=== PATIENT | female | born 1990 | race Caucasian/White ===

== ENCOUNTER 2019-12-10 14:34 | Emergency (ER) | payer SELFPAY ==
--- NOTE | 2019-12-10 14:44 | ED_ITS ---
HPI - Abdominal Pain General Stated Complaint: abdo pain nausea and Related Data Allergies Allergy/AdvReac Type Severity Reaction Status Date / Time Sulfa (Sulfonamide Allergy Unknown Verified 11/30/17 12:40 Antibiotics) MDM - Abdominal Pain MDM Narrative Medical decision making narrative: Patient presented to the urgent care stating that her ROOF MECHANIC referred her to the emergency room due to her painful abdominal cramps at 6 weeks . Patient was made aware that this is not the emergency room and we are unable to obtain an ultrasound. Patient states that she did not wish to be treated and will go to the ER as suggested by her doctor, Dr. Velarde at [place]. Patient was in no distress.
== END 2019-12-10 14:49 | disposition left against medical advice (07) ==
PROVIDERS: Emergency Provider Internal Medicine Hematology & Oncology
DX: Z53.21 Procedure and treatment not carried out due to patient leaving prior to being seen by health care provider (principal)
CPT/HCPCS: 99199

== ENCOUNTER 2019-12-10 14:53 | Emergency (ER) | payer OTHER, SELFPAY ==
--- NOTE | ~2019-12-10 | US_ITS ---
EXAMINATION: US OB <=14 wk fetus w TV DATE: 12/10/2019 17:56 INDICATION: Pelvic pain and TECHNIQUE: Real-time transabdominal and transvaginal obstetric ultrasound. FINDINGS: No prior studies for comparison. The uterus measures 7.5 x 5.1 x 5.3 cm. There is a tiny intrauterine gestational sac corresponding to 5 week 1 day gestational age. No pole identified. Right ovary is normal. Left ovary contains a 1.8 cm corpus luteal cyst. IMPRESSION: 1. Intrauterine gestational sac corresponding to 5 week 1 day gestation. No evidence for pole, likely due to early gestational age. Recommend follow-up with serial quantitative beta-hCG levels and ultrasound as clinically warranted. 2: 1.8 cm corpus luteal cyst of the left ovary. Reviewed, dictated and finalized at location A. IMPRESSION: 1. Intrauterine gestational sac corresponding to 5 week 1 day gestation. No delfina dence for pole, likely due to early gestational age. Recommend follow-up with serial quantitative beta-hCG levels and ultrasound as clinically warranted . 2: 1.8 cm corpus luteal cyst of the left ovary.
[2019-12-10 14:56] VITALS: BP 144/68; PULSE 90; RESP 18; TEMP 36.2; O2SAT 100
[2019-12-10 15:10] LABS: Basophils Percent Auto 0.3 % (0.2-1.2); Eosinophils Absolute Auto 0.1 K/mm3 (0-0.3); Eosinophils Percent Auto 1.4 % (0-4.4); Hematocrit 39.9 % (37.0-47.0); Hemoglobin 13.3 g/dL (12.0-15.0); Immature Granulocyte Absolute 0.06 K/mm3 (0.00-0.031); Immature Granulocyte Percent A 0.6 % (0-0.5); Lymphocytes Absolute Auto 2.15 K/mm3 (0.9-3.2); Lymphocytes Percent Auto 21.2 % (18.3-44.2); Mean Corpuscular HGB Conc 33.3 g/dl (32-36); Mean Corpuscular Hemoglobin 28.9 pg (26-34); Mean Corpuscular Volume 86.6 fl (80-100); Mean Platelet Volume 8.8 fl (7.4-10.4); Monocytes Absolute Auto 0.6 K/mm3 (0.1-0.6); Monocytes Percent Auto 5.5 % (2.6-8.5); Neutrophils Absolute Auto 7.2 K/mm3 (1.3-6.7); Platelet Count Result 328 k/mm3 (150-375); Red Blood Count 4.61 M/mm3 (4.2-5.4); Red Cell Distribution Width 13.7 % (11.5-14.5); White Blood Count 10.1 K/mm3 (4.5-10.0)
[2019-12-10 15:22] LABS: Alanine Aminotransferase 191 U/L (4-35); Albumin Level 4.2 g/dL (3.5-5.1); Alkaline Phosphatase 90 U/L (38-126); Anion Gap 14.2 mmol/L (7-16); Aspartate Amino Transferase 300 U/L (14-36); Bilirubin,Total 1.1 mg/dL (0.2-1.3); Blood Urea Nitrogen 8 mg/dL (7-17); Calcium 9.2 mg/dL (8.4-10.2); Carbon Dioxide 24 mmol/L (22-30); Chloride 102 mmol/L (98-107); Estimated CRCL calculation 143 ml/min; Estimated Glomerular Filt Rate > 60; Glucose 155 mg/dL (65-105); Lipase 38 U/L (23-300); Potassium 4.2 mmol/L (3.4-5.0); Sodium 136 mmol/L (137-145)
[2019-12-10 16:16] VITALS: BP 131/75; PULSE 77; RESP 18; O2SAT 97
[2019-12-10 16:36] LABS: Add Urine Microscopic? YES; Amorphous Sediment Urine Few; Appearance Urine Cloudy (Clear); Bacteria Urine Trace /hpf; Bilirubin Urine Negative (Negative); Blood Urine Negative (Negative); Color Urine Amber (Yellow); Glucose Urine UA Negative (Negative); Ketones Urine Trace mg/dL (Negative); Leukocyte Esterase Ur 1+ LEU/UL (Negative); Mucus Urine Few /lpf; Nitrate Urine Negative (Negative); Protein Urine Negative (Negative); Specific Grav Ur 1.021 (1.001-1.035); Squamous Epithelial Cell Urine Many /hpf (Few); WBC Urine 0-3 /hpf
--- NOTE | 2019-12-10 17:10 | PC.NURSE ---
Pt taken to US
--- NOTE | 2019-12-10 17:11 | ED.ABDPAIN ---
HPI - Abdominal Pain General Chief Complaint: Abdominal Pain Stated Complaint: 6 weeks preg, nausea, back and abd pain Time Seen by Provider: 12/10/19 15:57 History of Present Illness HPI narrative: Patient presents with her for upper abdominal pain. Started at 8 AM this morning. She started vomiting at 2:00. She said she has been vomiting nonstop since then. She has had her gallbladder taken out. She has had 2 normal pregnancies with delivery. She has not been sick in the last week or 2. She has had no hyperemesis with the early . She should be 6 weeks along with her last menstrual cycle in the middle of October. She has not yet started her [employer] appointments. She gauges her pain at 8 out of 10. 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 She does not smoke cigarettes, drink alcohol, or do drugs. MD elicited complaint: abdominal pain Pertinent past history: other (Cholecystectomy, ) Onset (ago): hour(s) Pain Consistency: constant Location: epigastric and periumbilical Severity: severe Exacerbating factors: nothing Relieving factors: nothing Related Data Home Medications Medication Instructions Recorded Confirmed No Home Medications 12/10/19 12/10/19 Allergies Allergy/AdvReac Type Severity Reaction Status Date / Time Sulfa (Sulfonamide Allergy Unknown Unknown Verified 12/10/19 14:53 Antibiotics) Review of Systems Review of Systems: Narrative: CONSTITUTIONAL: Denies fever, chills, or sweats. EYES: Denies visual changes, redness, or discharge. ENT: Denies rhinorrhea, congestion, sore throat, or otalgia. CARDIOVASCULAR: Denies chest pain, palpitations, or edema. RESPIRATORY: Denies cough or dyspnea. GASTROINTESTINAL: She has abdominal pain, nausea, and vomiting, but not diarrhea. GENITOURINARY: Denies dysuria or hematuria. SKIN: Denies rash or itching. MUSCULOSKELETAL: Denies back pain, joint pain, or myalgia. NEUROLOGIC: Denies headache, numbness, or weakness. All systems reviewed & are unremarkable except as noted in HPI and below PMFSH Surgical History Surgical History (Updated 12/10/19 @ 17:16 by Lydia Ross MD) History of History of cholecystectomy Social History Social History (Updated 12/10/19 @ 17:17 by Lydia Ross MD) Smoking status: Never smoker Alcohol intake: never Substance use: never Gender identity (if verbalized by the patient): Female Exam Narrative: Exam Narrative: GENERAL: Well-appearing, well-nourished, and in no acute distress. Overweight HEAD: Normocephalic, atraumatic. EYES: PERRLA and EOMI. ENT: Nares clear, no rhinorrhea or epistaxis. Mucous membranes moist. NECK: Supple. CHEST: Clear to auscultation. No respiratory distress. HEART: Regular rate and rhythm. No murmur heard. Normal peripheral pulses. ABDOMEN: Soft, nontender, nondistended, normal active bowel sounds. EXTREMITIES: Normal range of motion. No edema. SKIN: Warm, dry, no rash. NEURO: No focal deficits. Alert and oriented x3. PSYCH: Normal mood and affect. Course Reevaluation(s) Reevaluation #1: Went into check on the patient and her IV fluids had just been started. She had just gotten her Reglan and still has some nausea. I told her that her labs were all good. Awaiting the results of the ultrasound. Date: 12/10/19 Time: 18:36 Reevaluation #2: Went back into check on the patient, and she is feeling better. Her bag of IV fluids is empty. She is asking for some juice and crackers. I told her about her elevated liver functions and told her I would refer her to Dr. Barroso. Date: 12/10/19 Time: 18:55 Vital Signs Vital signs: Vital Signs Temperature 97.1 F L 12/10/19 14:56 Pulse Rate 90 12/10/19 14:56 Respiratory Rate 18 12/10/19 14:56 Blood Pressure 144/68 H 12/10/19 14:56 Pulse Oximetry 100 12/10/19 14:56 Temperature 97.1 F L 12/10/19 14:56 Pulse Rate 88 12/10/19 17:59 Respiratory Rate 18 12/10/19 17:59 Blood Pres
--- NOTE | 2019-12-10 17:57 | PC.NURSE ---
Pt returned from US
[2019-12-10 17:59] VITALS: BP 141/84; PULSE 88; RESP 18; O2SAT 100
[2019-12-10] MEDS: METOCLOPRAMIDE HCL INJ 10 MG/2 ML VIAL IV PUSH (18:01)
[2019-12-10] MEDS: DEXTROSE 5%/0.9% SOD CHL 1,000 ML 999 ML IV CONT (18:01)
[2019-12-10] MEDS: FAMOTIDINE 20 MG/2 ML VIAL IV PUSH (18:01)
--- NOTE | 2019-12-10 18:27 | PC.NURSE ---
Called to add on Beta HCG
[2019-12-10 19:00] VITALS: BP 138/75; PULSE 95; RESP 18; O2SAT 99
[2019-12-10] MEDS: ONDANSETRON INJ 4 MG/2 ML VIAL IV PUSH (19:02)
[2019-12-10 19:30] VITALS: BP 129/76; PULSE 95; RESP 18; O2SAT 99
== END 2019-12-10 19:44 | disposition home or self-care (01) ==
PROVIDERS: Emergency Provider Emergency Medicine
DX: O21.0 Mild hyperemesis gravidarum (principal); Z3A.01 Less than 8 weeks gestation of pregnancy; R94.5 Abnormal results of liver function studies; O99.611 Diseases of the digestive system complicating pregnancy, first trimester; K29.00 Acute gastritis without bleeding; O34.81 Maternal care for other abnormalities of pelvic organs, first trimester; N83.12 Corpus luteum cyst of left ovary
CPT/HCPCS: 36415; 76801; 76817; 76830; 76856; 80053; 81001; 81025; 83690; 84702; 85025; 96361; 96365; 96375; 99284; J0131; J2405; J2765; J7042

== ENCOUNTER → 2020-01-14 15:40 | Outpatient (CLI) | payer OTHER, SELFPAY ==
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
== END ==
PROVIDERS: Visit Provider Obstetrics & Gynecology Gynecology
DX: Z36.9 Encounter for antenatal screening, unspecified (principal); Z3A.10 10 weeks gestation of pregnancy
CPT/HCPCS: 76801

== ENCOUNTER → 2020-03-10 13:57 | Outpatient (CLI) | payer OTHER, SELFPAY ==
--- NOTE | ~2020-03-10 | US_ITS ---
EXAMINATION: US OB >= 14 weeks Fetus DATE: 03/10/2020 14:40 INDICATION: survey TECHNIQUE: Multiple obstetric sonographic images performed. FINDINGS: No prior studies for comparison. There is a single living fetus in variable presentation. The placenta is posterior without placenta previa. Placental margin is 4.4 cm to the cervix. Amniotic fluid volume is normal. cardiac activity and movement is noted with a heart rate of 148 beats per minute. The following anatomy was identified as normal: 4 chamber heart 3 vessel cord cord insertion kidneys urinary bladder stomach spine diaphragm ventricles cisterna magna cerebellum The following biometric data were obtained: BPD: 42mm corresponds to gestational age 18 weeks 5 days. Head circumference: 155 mm corresponds to gestational age 18 weeks 3 days. Abdominal circumference: 128 mm corresponds to gestational age 18 weeks 2 days. Femur length: 26 mm corresponds to gestational age 17 weeks 6 days. Head circumference to abdominal circumference ratio: 1.21 (normal range for expected gestational age is 1.08-1.27). Estimated weight: 227 grams +/- 34 grams using Hadlock method. IMPRESSION: 1: Single living intrauterine with an estimated gestational age of 18weeks 3days by initial ultrasound measurements, with an EDC of 08/08/2020 in variable presentation. 2. Normal survey. Reviewed, dictated and finalized at location A. IMPRESSION: 1: Single living intrauterine with an estimated gestational age of 18 weeks 3days by initial ultrasound measurements, with an EDC of 08/08/2020 in nabeel iable presentation. 2. Normal survey.
== END ==
PROVIDERS: Visit Provider Obstetrics & Gynecology Gynecology
DX: Z36.9 Encounter for antenatal screening, unspecified (principal); Z3A.18 18 weeks gestation of pregnancy
CPT/HCPCS: 76805

== ENCOUNTER 2020-04-15 15:21 | Outpatient (CLI) | payer OTHER, SELFPAY ==
--- NOTE | ~2020-04-15 | US_ITS ---
EXAMINATION: US OB follow up DATE: 04/15/2020 15:48 INDICATION: Gestational size greater than dates. TECHNIQUE: Real-time transabdominal obstetric ultrasound. FINDINGS: Comparison to multiple prior studies sequentially, with oldest reviewed study dated 020. There is a single living fetus in vertex presentation. The placenta is fundal without placenta previ a. cardiac activity and movement is noted with a heart rate of 145 beats per minute. T he amniotic fluid volume is normal. OSWALD is normal measuring 16 cm. The following biometric data were obtained: BPD: 56mm corresponds to gestational age 23 weeks 0 days. Head circumference: 209mm corresponds to gestational age 23 weeks 0 days. Abdominal circumference: 195mm corresponds to gestational age 24 weeks 1 days. Femur length: 41mm corresponds to gestational age 23 weeks 1 days. Estimated weight: 609grams +/- 91grams.] IMPRESSION: 1. Single living intrauterine in vertex presentation with an estimated gestational age of 23 weeks 4 days by inititial ultrasound. Appropriate interval growth. 2. Normal placenta. Reviewed, dictated and finalized at location B. ECTOR EYEGLASS FRAMES IMPRESSION: 1. Single living intrauterine in vertex presentation with an estimat ed gestational age of 23 weeks 4 days by inititial ultrasound. Appropriate int erval growth. 2. Normal placenta.
== END 2020-04-15 15:22 ==
PROVIDERS: Visit Provider Obstetrics & Gynecology Gynecology
DX: O36.60X0 Maternal care for excessive fetal growth, unspecified trimester, not applicable or unspecified (principal); Z3A.00 Weeks of gestation of pregnancy not specified
CPT/HCPCS: 76816

== ENCOUNTER → 2020-05-28 15:21 | Outpatient (CLI) | payer OTHER, SELFPAY ==
--- NOTE | ~2020-05-28 | US_ITS ---
EXAMINATION: US OB follow up DATE: 05/28/2020 15:51 INDICATION: Estimated size greater than expected for estimated gestational age [facility] TECHNIQUE: Real-time ultrasound of the pelvis was performed. The interpreting radiologist was not pre sent for the study. COMPARISON: 04/15/2020 FINDINGS: There is a single living fetus in vertex presentation. The placenta is posterior fundal. heart rate is 138 beats per minute (bpm). The amniotic fluid index is 15.7 cm, which is normal (5th%-95% : 9.2-23.1 cm at 29 weeks estimated gestational age). The following biometric data were obtained: BPD: 7.3 cm -> 29 weeks 0 days Head circumference: 26.8 cm -> 29 weeks 2 days Abdominal circumference: 26.2 cm -> 30 weeks 2 days Femur length: 5.3 cm -> 28 weeks 1 days These measurements are concordant. Head circumference to abdominal circumference ratio: 1.02 (normal range 0.99-1.21). Estimated weight: 1389 g (+/-) 208 g. or 3 lbs. 1 oz. (+/-) 7 oz. IMPRESSION: 1. Single living fetus in vertex presentation with heart rate of 139 bpm. 2. Normal amniotic fluid index of 15.7 cm. 3. Estimated weight is 27th percentile by Hadlock criteria when 08/08/2020 is used as the estima manuelito date of delivery (LANI). Please correlate with clinical information or earlier ultrasounds for mos t accurate LANI. Reviewed, dictated and finalized at location A. INE SORTER IMPRESSION: 1. Single living fetus in vertex presentation with heart rate of 139 bpm. 2. Normal amniotic fluid index of 15.7 cm. 3. Estimated weight is 27th percentile by Hadlock criteria when 08/08/2020 is used as the estimated date of delivery (LANI). Please correlate with clinica l information or earlier ultrasounds for most accurate LANI.
== END ==
PROVIDERS: Visit Provider Obstetrics & Gynecology Gynecology
DX: O36.63X0 Maternal care for excessive fetal growth, third trimester, not applicable or unspecified (principal); Z3A.00 Weeks of gestation of pregnancy not specified
CPT/HCPCS: 76816

== ENCOUNTER 2020-06-22 12:22 | Outpatient (RCR) | payer OTHER, SELFPAY ==
[2020-06-22 12:58] VITALS: BP 123/63; PULSE 94
== END 2020-08-05 08:04 | disposition home or self-care (01) ==
LOC: ANHOBOP 12:22
PROVIDERS: Visit Provider Obstetrics & Gynecology Gynecology
DX: O24.419 Gestational diabetes mellitus in pregnancy, unspecified control (principal); Z3A.33 33 weeks gestation of pregnancy
CPT/HCPCS: 59025

== ENCOUNTER 2020-08-02 11:05 | Outpatient (CLI) | payer OTHER, SELFPAY ==
[2020-08-02 11:28] LABS: Hematocrit 36.7 % (37.0-47.0); Mean Corpuscular HGB Conc 32.7 g/dl (32-36); Mean Corpuscular Hemoglobin 28.2 pg (26-34); Mean Corpuscular Volume 86.2 fl (80-100); Mean Platelet Volume 8.9 fl (7.4-10.4); Platelet Count Result 215 k/mm3 (150-375); Red Blood Count 4.26 M/mm3 (4.2-5.4); Red Cell Distribution Width 14.6 % (11.5-14.5); White Blood Count 8.5 K/mm3 (4.5-10.0)
[2020-08-04 07:03] LABS: Rapid Plasma Reagin Non-Reactive (NonReactive)
== END 2020-08-02 11:06 | disposition home or self-care (01) ==
LOC: ANHLAB 11:10
PROVIDERS: Visit Provider Obstetrics & Gynecology Gynecology
DX: Z34.93 Encounter for supervision of normal pregnancy, unspecified, third trimester (principal); Z3A.00 Weeks of gestation of pregnancy not specified
CPT/HCPCS: 36415; 85027; 86592; 86850; 86900; 86901

== ENCOUNTER 2020-08-04 07:00 | Inpatient (IN) | payer OTHER, SELFPAY ==
--- NOTE | 2020-07-16 16:02 | PC.NURSE ---
VERIFIED WITH OR SCHEDULE AND PATIENT--C/S ON 08/04/20 AT 0900 PATIENT GIVEN REQUISITION FOR LAB DRAW ON 08/02/20
[2020-08-04] VITALS (62 sets, daily range): BP systolic 95–119; BP diastolic 48–83; PULSE 56–95; RESP 11–20; TEMP 36.1–36.9; O2SAT 97–100; BMI 44.6
--- NOTE | 2020-08-04 07:32 | WPDHPUPDATE1 ---
History and Physical Update Update Date/Time: 08/04/20 07:32 History and Physical has been reviewed, including an updated exam of the patient. There are NO changes in the patient's condition. Risks, benefits, and alternatives have been discussed and questions answered. Patient agrees to proceed with procedure.
--- NOTE | 2020-08-04 07:32 | PM.IMHP ---
H&P: HPI History of Present Illness Date/Time: 08/04/20 07:32 Chief Complaint: csection Narrative: The patient is a 30-year-old 3 para 2 at 39 weeks here for repeat section. The patient's has been complicated by gestational diabetes insulin-requiring. labs A-positive, rubella immune, RPR negative, hepatitis-B surface antigen negative, and HIV negative. Review of Systems Review of Systems: Narrative: not repeated day of surgery; patient states no changes in status PMF Past Medical History Medical History (Updated 08/04/20 @ 07:37 by Helena Anguiano MD) HSV (herpes simplex virus) anogenital infection Psoriasis Surgical History Surgical History (Updated 08/04/20 @ 07:36 by Helena Anguiano MD) History of x 2 History of cholecystectomy Family History Family History (Updated 07/16/20 @ 15:43 by Katya Larson RN) Sibling Rett syndrome Father High cholesterol Grandparent Diabetes mellitus Breast cancer in female Skin cancer Cancer Social History Social History (Updated 12/10/19 @ 17:17 by Lydia Ross MD) Smoking status: Never smoker Alcohol intake: never Substance use: never Gender identity (if verbalized by the patient): Female Spiritual care concerns: No Meds Home Medications and Allergies Home Medications Medication Instructions Recorded Confirmed Type aspirin [Aspirin Child] 81 mg 06/22/20 History docusate sodium [Colace] 100 mg PO 06/22/20 History insulin NPH isoph U-100 human 72 unit SUBCUT HS 06/22/20 06/22/20 History [Novolin N NPH U-100 Insulin] insulin aspart U-100 [Novolog 5 unit SUBCUT WMHS 06/22/20 06/22/20 History U-100 Insulin aspart] vit-ferrous sulfat-FA 1 tablet PO 06/22/20 History [] ergocalciferol (vitamin D2) 1,250 mcg PO 2XW 07/16/20 07/16/20 History [Vitamin D2] ferrous sulfate 325 mg PO DAILY 07/16/20 07/16/20 History Allergies Allergy/AdvReac Type Severity Reaction Status Date / Time Sulfa (Sulfonamide Allergy Unknown Unknown Verified 07/16/20 15:35 Antibiotics) Exam Narrative: Exam Narrative: Last weight in the office is 262 lb Const: General: healthy appearing and comfortable Resp: Effort & Inspection: normal respiratory effort Auscultation: clear to auscultation bilaterally Cardio: Rate: regular rate Rhythm: regular rhythm GI: GI Palp: Yes Other GI palpation findings present (Gravid with a fundal height of 41cm) Assessment and Plan Assessment and plan (1) 39 weeks gestation of : Code(s): Z3A.39 - 39 weeks gestation of Status: Acute (2) History of : Code(s): Z98.891 - History of uterine scar from previous surgery Status: Acute Assessment and Plan: plan to proceed with repeat LTCS (3) GDM, class A2: Code(s): O24.419 - Gestational diabetes mellitus in , unspecified control Status: Acute
[2020-08-04] MEDS: LACTATED RINGERS 1,000 ML 125 ML IV CONT ×3 (07:49→10:39)
[2020-08-04 08:03] LABS: Glucose Point of Care 79 (65-105)
--- NOTE | 2020-08-04 08:08 | LDADM ---
This patient, Sara Shanks, was admitted to Labor/Delivery/Recovery 119 on 08/04/20 at 07:00. Plans for labor, pain management and were discussed with patient. Patient/family oriented to hospital policies and general routines including ID bracelet, bed and alarms, visiting hours, pain management, procedures, bathroom and other care routines, personal items, smoking policy, room service/diet and guest tray routines, infant security routines, and visiting hours. Patient/Family are encouraged to report perceived risks to care and to ask questions if they do not understand what they are told or what they should do. See OBIX for further documentation.
--- NOTE | 2020-08-04 08:35 | WPDANESEPPF ---
Anes - Initial Pre Proc Eval Procedure: Operation Date: 08/04/20 09:00 Proposed Procedures p Repeat Section - Helena Anguiano MD Date/Time: 08/04/20 08:35 Surgeon: Helena Anguiano MD Pre Op Diagnosis: C/S Patient Data Age: 30 Gender: F Height: 5 ft 4 in Weight: 118 kg Last Vital Signs Temp 36.8 C 08/04/20 07:39 Pulse 78 08/04/20 07:40 BP 114/71 08/04/20 07:40 Allergies Allergy/AdvReac Type Severity Reaction Status Date / Time Sulfa (Sulfonamide Allergy Unknown Unknown Verified 07/16/20 15:35 Antibiotics) Home Medications Medication Instructions Recorded Confirmed Type aspirin [Aspirin Child] 81 mg PO DAILY 06/22/20 08/04/20 History docusate sodium [Colace] 100 mg PO DAILY 06/22/20 08/04/20 History insulin NPH isoph U-100 human 72 unit SUBCUT HS 06/22/20 08/04/20 History [Novolin N NPH U-100 Insulin] vit-ferrous sulfat-FA 1 tablet PO DAILY 06/22/20 08/04/20 History [] ergocalciferol (vitamin D2) 1,250 mcg PO 2XW 07/16/20 08/04/20 History [Vitamin D2] ferrous sulfate 325 mg PO DAILY 07/16/20 08/04/20 History Laboratory Tests 08/04/20 08:00 POC Capillary Glucose 79 mg/dl mg/dl (65-105) Patient hx anesthesia problems: none Family hx anesthesia problems: none PMFSH Past Medical History Medical History (Updated 08/04/20 @ 07:37 by Helena Anguiano MD) HSV (herpes simplex virus) anogenital infection Psoriasis Surgical History Surgical History History of x 2 History of cholecystectomy Family History Family History Sibling Rett syndrome Father High cholesterol Grandparent Diabetes mellitus Breast cancer in female Skin cancer Cancer Social History Social History Smoking status: Never smoker Alcohol intake: never Substance use: never Gender identity (if verbalized by the patient): Female Spiritual care concerns: No Anes - Eval Final PreProcedure Day of Procedure 08/04/20 08:35 Patient weight: morbidly obese Heart: regular rate and rhythm Lungs: clear to auscultation Airway: Mallampati scale class II Neurological: alert and oriented ASA classification: III Emergent: no Anesthetic plan: proceed Anesthesia type and monitoring: regional spinal and standard monitoring Informed Consent: The patient's anesthetic plan and its attendant risks and benefits were discussed with the patient/family/POA. Questions were solicited and answers provided to the satisfaction of the patient/family/POA.
--- NOTE | 2020-08-04 10:00 | PM.PROC ---
Procedure Note - Detailed Date of procedure: 08/04/20 Pre-op diagnosis: C/S Prior csection x 2 IUP 39 wk GDMA2 Post-op diagnosis: same Procedure performed: Repeat LTCS Description of procedure: The patient was taken to the operating room and placed in the dorsal supine position with a leftward tilt under spinal anesthesia. She was prepped and draped in usual sterile fashion. A Pfannenstiel skin incision was made through the prior incision and carried down to the underlying layer of fascia with the scalpel. The incision is extended laterally using Ocampo scissors. Fascia was dissected off using sharp dissection due to adhesions. The peritoneum was tented and entered with Metzenbaum. The incision is extended with blunt traction. The bladder blade is placed the vesicouterine peritoneum was tented entered with Metzenbaum and extended laterally minimal bladder flap is obtained due to adhesions approximately 1cm below the incision. The lower uterine segment was incised in a transverse fashion with the scalpel and extended laterally using blunt traction. Membranes were ruptured and clear fluid noted. The 's head was brought up into the incision and while I guided the vertex the hospital medical assistant applied fundal pressure delivering the infant. Cord was clamped and cut and the infant handed to the waiting nursery nurse. The placenta was delivered using manual traction. The uterus is cleared of all clots and debris and exteriorized. The uterine incision was closed using 0 Monocryl in a running locked fashion with the same suture used to imbricate. Good hemostasis is noted at the incision no additional sutures are required. The cul-de-sac is irrigated. The uterus is returned to the abdomen. The gutters are irrigated. The incision was again inspected and noted to be hemostatic. The fascia is closed using 0 Vicryl in a running fashion. The subcutaneous tissues are irrigated and made hemostatic using Bovie cautery. The skin incision was closed using 4 0 Vicryl in a subcuticular fashion. Sponge, needle, and instrument counts are correct per the OR staff. Dermaflex was placed over the incision and she was taken to recovery in stable condition. Anesthesia: spinal Surgeon: Helena Anguiano MD Estimated blood loss (mL): 410 Drains: Yes (germain) Packing: No Pathology: yes (placenta) Complications: No immediate complications Condition: stable Disposition: PACU Findings: female 8#1oz with 9/9 Apgars; normal appearing tubes, ovaries, and uterus
--- NOTE | 2020-08-04 10:03 | PM.OBDSVD ---
DS: Admitting Diagnosis Admitting Diagnosis Admitting Diagnosis: IUP 39 wks; prior csection x 2; GDMA2 DS: Discharge Diagnosis Discharge Diagnosis (1) GDM, class A2: Code(s): O24.419 - Gestational diabetes mellitus in , unspecified control Status: Acute (2) 39 weeks gestation of : Code(s): Z3A.39 - 39 weeks gestation of Status: Acute OB - DS: Summary OB Procedures : NST and Ultrasound OB Procedures Intrapartum: low cervical, transverse OB Procedures: : None Peripartum Data Delivery Method: Section Procedures: Procedures Operation Date: 08/04/20 09:00 <No data on this case meets the specified criteria> Status at Discharge Functional status at discharge: independent ambulation Overall status at discharge: patient is progressing back to baseline Time Spent with Patient Time attestation: Total time spent providing and/or coordinating discharge services: DS: Data Data Completed and Pending Labs on day of discharge: Labs from last 24 hours 08/04/20 08:00 POC Capillary Glucose 79 Discharge Plan Discharge Attending physician on discharge: Helena Anguiano Consulting providers: [facility] Discharging Clinician: Helena Anguiano Anticipated Discharge Date/Time: 08/07/20 10:04 Patient Disposition: Home, Self-Care Activity: may shower, may drive after 2 weeks and pelvic rest Diet: regular Wound Care Instructions: incision open to air Discharge Instructions: Education: Mom and Baby Guide Given to: Mother Follow-Up: Call your delivering provider's office for an appointment to be seen in: 1 Week Mom and baby should come to the [facility] for the follow-up appointment. Appointment Date/Time: August 08, 2020 at 11:00 am What to expect at your follow-up visit: Blood Pressure Check Call [phone] if you are unable to keep your appointment time. BREAST CARE: * Wear a snug supportive bra. * For engorgement discomfort: Breast Feeding: * Apply warm moist washcloths * Express milk as needed to relieve engorgement * Wear loose clothing Bottle Feeding: * May apply ice packs * For sore nipples: * Identify correct latch-on * Apply warm moist washcloths before and after nursing * Air dry nipples after nursing * May apply Lansinoh cream to nipples ABDOMINAL INCISION: (if applicable) * Allow incision to air dry * Do NOT use lotions for powders on your incision * When showering, allow soap and water to run over the incision, but do not wash incision PERINEAL CARE: * Until bleeding stops, use your marcos bottle after urinating * Change your pad frequently throughout the day * No tub baths until seen by your physician - You may shower ACTIVITY: * Rest as much as possible. * Do not exercise or lift anything heavier than your baby (such as laundry or other children.) * Avoid stairs or driving as much as possible. * Do not put anything into the vagina. No douching, tampons, or sexual activity until seen by physician. NOTIFY PHYSICIAN IF YOU HAVE ANY QUESTIONS OR IF ANY OF THE FOLLOWING SYMPTOMS OCCUR: * If your incision becomes red, swollen, or more painful than what you have experienced in the hospital. * If your vaginal bleeding becomes foul smelling. * If your vaginal bleeding becomes more heavy than a period or if your bleeding changes from pink to bright red. However, you may pass an occasional walnut-sized clot once or twice for the first week . * If you experience a sharp, shooting pain in you calves. * If you discover a hard, reddened area on your breast or if you experience flu-like symptoms. * If you have a fever of 100.4 or greater DIET: * Eat regular, well-balanced meals. * Drink plenty of fluids daily. If , drink to thir
[2020-08-04] MEDS: OXYTOCIN 30 UNITS/NS 500 ML 30 UNITS/500 ML BAG 125 UNITS IV CONT (11:56)
--- NOTE | 2020-08-04 12:39 | PC.NURSE ---
Patient transferred to post room #284 via stretcher. Support person present. Oriented to unit, room, information board, rooming in, admission packet and security measures. Patient verbalizes understanding.
--- NOTE | 2020-08-04 14:15 | PC.NURSE ---
consult with pt., mother reports she chooses to pump and bottle feed due to HX of low milk supply. Mother will put to breast at times while in the hospital. Mother will follow up with supplement. Mother states she will begin pumping tomorrow.
[2020-08-04] MEDS: KETOROLAC 30 MG/ML VIAL (*BKC) IV PUSH ×2 (16:17→22:15)
[2020-08-04] MEDS: DEXTROSE 5%/0.45% SOD CHL 1,000 ML 125 ML IV CONT (16:50)
[2020-08-05] MEDS: KCL 20 MEQ/D5/0.45% SOD CHL 1,000 ML 125 ML IV CONT (00:59)
[2020-08-05 02:22] VITALS: BP 107/70; PULSE 85; RESP 16; TEMP 36.2; O2SAT 97
[2020-08-05 05:15] LABS: Basophils Percent Auto 0.2 % (0.2-1.2); Eosinophils Absolute Auto 0.1 K/mm3 (0-0.3); Eosinophils Percent Auto 0.9 % (0-4.4); Hematocrit 30.1 % (37.0-47.0); Hemoglobin 9.9 g/dL (12.0-15.0); Immature Granulocyte Absolute 0.04 K/mm3 (0.00-0.031); Immature Granulocyte Percent A 0.5 % (0-0.5); Lymphocytes Absolute Auto 2.03 K/mm3 (0.9-3.2); Lymphocytes Percent Auto 22.9 % (18.3-44.2); Mean Corpuscular HGB Conc 32.9 g/dl (32-36); Mean Platelet Volume 9.1 fl (7.4-10.4); Monocytes Absolute Auto 0.7 K/mm3 (0.1-0.6); Monocytes Percent Auto 7.4 % (2.6-8.5); Neutrophils Absolute Auto 6.1 K/mm3 (1.3-6.7); Neutrophils Percent Auto 68.1 % (45.5-73.1); Platelet Count Result 187 k/mm3 (150-375); Red Blood Count 3.54 M/mm3 (4.2-5.4); Red Cell Distribution Width 14.9 % (11.5-14.5); White Blood Count 8.9 K/mm3 (4.5-10.0)
[2020-08-05 07:30] VITALS: BP 124/80; PULSE 92; RESP 16; TEMP 37.4; O2SAT 99
--- NOTE | 2020-08-05 07:44 | PM.OBPNVD ---
OB - PN: Subj Subjective Date/time seen: 08/05/20 07:44 Patient comments: no complaints baby status: doing well OB - PN: Obj Data Labs CBC & Chem 7: 08/05/20 04:40 Labs: Laboratory Results - last 24 hr 08/04/20 08/05/20 08:00 04:40 WBC 8.9 RBC 3.54 L Hgb 9.9 L Hct 30.1 L MCV 85.0 MCH 28.0 MCHC 32.9 RDW 14.9 H Plt Count 187 MPV 9.1 Immature Gran % (Auto) 0.5 Neut % (Auto) 68.1 Lymph % (Auto) 22.9 [place] % (Auto) 7.4 Eos % (Auto) 0.9 Baso % (Auto) 0.2 Lymph # (Auto) 2.03 [place] # (Auto) 0.7 H Eos # (Auto) 0.1 Baso # (Auto) 0.0 Abs Immat Gran (auto) 0.04 H Absolute Neuts (auto) 6.1 Absolute Nucleated RBC 0.0 Nucleated RBC % 0.0 POC Capillary Glucose 79 OB - PN A/P Assessment and Plan (1) delivery delivered: Code(s): O82 - Encounter for delivery without indication Status: Acute Assessment and Plan: Doing well. Continue care. Plans oc's for bc Time Spent With Patient Time: Total time spent is greater than 50% in coordination of care (as documented) at patient's floor/unit and/or counseling patient: Exam Narrative: Exam Narrative: inc c/d/i : Bimanual exam- vagina & uterus: other (Uterus firm, nt @U)
--- NOTE | 2020-08-05 09:00 | PC.NURSE ---
Consult with pt., mother states she will initiate pumping today and may put to breast. Mother reported bottle feeding during the night and did not put infant to breast. Assured mother this is her routine and plans, we will assist as she requests. Mother states she does want to pump and give as much EBM as possible. Mother plans to put infant to breast while in the hospital to assist with milk supply. Discussed stimulation and to initiate pumping or putting infant breast each feeding. Mother will call out as needed.
[2020-08-05] MEDS: DOCUSATE SODIUM 100 MG CAPSULE PO ×2 (09:45→15:51)
[2020-08-05] MEDS: IBUPROFEN 600 MG TABLET PO ×3 (09:45→23:27)
[2020-08-05] MEDS: HYDROcodone/acetaminophen (*CRX) 5-325 MG TABLET 1 TAB PO ×3 (09:45→23:27)
[2020-08-05] MEDS: MULTIVIT/MIN/PREN/FOL AC/IRON TABLET 1 TAB PO (09:45)
[2020-08-05] MEDS: POLYSACCHARIDE IRON COMPLEX 150 MG CAPSULE PO ×2 (09:47→15:50)
--- NOTE | 2020-08-05 14:45 | WPDANLDPN2 ---
Anes-Prog Note L&D Date/Time: 08/05/20 14:45 Comfortable throughout: section Neuraxial method: spinal Epidural/Spinal procedure site: clean & non-tender Neuro status: Neuro function grossly intact. Cardiovascular status: normal Respiratory status: normal Airway patency: baseline Mental status: baseline Post-Op hydration status: normal Vital Signs: Last Vital Signs Temp 99.4 F 08/05/20 07:30 Pulse 92 08/05/20 07:30 Resp 16 08/05/20 07:30 BP 124/80 08/05/20 07:30 Pulse Ox 99 08/05/20 07:30 Pain score (VAS): 0/10 I/O: Intake & Output 08/04/20 08/05/20 08/05/20 23:59 07:59 15:59 Intake Total 500 500 Output Total 2750 Balance 500 -2250 Post-procedural complaints: none Patient feedback: Patient satisfied with anesthetic care.
--- NOTE | 2020-08-05 14:45 | WPDANLDNPN2 ---
Anes-Prog Note L&D-Neuraxial Date/Time: 08/05/20 14:45 Neuraxial medications: intrathecal PF morphine Opiod-related complaints: none Patient feedback: Patient satisfied with post-operative pain management.
[2020-08-05 19:30] VITALS: BP 123/75; PULSE 89; RESP 16; TEMP 36.6; O2SAT 98
[2020-08-06] MEDS: HYDROcodone/acetaminophen (*CRX) 5-325 MG TABLET 1 TAB PO ×2 (05:23→09:43)
[2020-08-06] MEDS: IBUPROFEN 600 MG TABLET PO (05:24)
[2020-08-06 07:50] VITALS: BP 121/72; PULSE 82; RESP 18; TEMP 37; O2SAT 97
--- NOTE | 2020-08-06 08:19 | PM.OBPNVD ---
OB - PN: Subj Subjective Date/time seen: 08/06/20 08:19 Doing well no complaints OB - PN: Obj Data Labs CBC & Chem 7: 08/05/20 04:40 OB - PN A/P Assessment and Plan (1) delivery delivered: Code(s): O82 - Encounter for delivery without indication Status: Acute Assessment and Plan: continue with postop care. Time Spent With Patient Time: Total time spent is greater than 50% in coordination of care (as documented) at patient's floor/unit and/or counseling patient: Exam Narrative: Exam Narrative: incision: c/d/i
--- NOTE | 2020-08-06 09:00 | PC.NURSE ---
Patient viewed the discharge video Mother & Baby Care, The First Two Weeks . Patient was given the opportunity and encouraged to ask questions. Patient verbalized understanding of information shared and has been given the mother/baby guide for home reference.
--- NOTE | 2020-08-06 09:05 | PC.NURSE ---
Consult with pt., mother reports she has put to breast a few times during the night. Mother states she will initiate pumping once home. Offered to assist mother with her pump if she wishes before discharge. Reviewed breast pump care and usage, pumping schedule, nipple care, and collection and storage of breast milk. Encouraged [id number], breast massage and manual expression to stimulate supply. Mother's plan is to pump and offer EBM as available to . Mother has a HX of low milk supply and feels this plans is best for her.
[2020-08-06 09:40] VITALS: PULSE 82; RESP 18; O2SAT 97
[2020-08-06] MEDS: SIMETHICONE 80 MG TAB.CHEW PO (09:42)
[2020-08-06] MEDS: POLYSACCHARIDE IRON COMPLEX 150 MG CAPSULE PO (09:42)
[2020-08-06] MEDS: DOCUSATE SODIUM 100 MG CAPSULE PO (09:42)
[2020-08-06] MEDS: MULTIVIT/MIN/PREN/FOL AC/IRON TABLET 1 TAB PO (09:42)
[2020-08-06] MEDS: LANOLIN (LANSINOH) 7.5 GM CREAM 1 APPLIC TOPICAL (09:45)
--- NOTE | 2020-08-06 10:31 | PC.NURSE ---
Addendum entered by Tom Lloyd RN 08/06/20 10:31: actual time was 0800 Original Note: PT introductions made and plan of care discussed per post , pain management, breast/bottle feeding, daily care activities and pending discharge to home. PT verbalized understanding of such care.
--- NOTE | 2020-08-06 12:00 | PC.NURSE ---
PT received discharge instructions per protocol and verbalized understanding of such instructions.
--- NOTE | 2020-08-06 12:30 | PC.NURSE ---
PT discharged to home ambulatory accompanied by spouse and and taken to waiting car. Follow up appts confirmed
[2020-08-08 11:24] VITALS: BP 136/80; PULSE 92; RESP 20; TEMP 36.7; O2SAT 100
== END 2020-08-06 12:30 | disposition home or self-care (01) | DRG 787 ==
LOC: ANHLDR 08-06 20:08 → ANHOB2 08-06 20:08
PROVIDERS: Admitting Provider Obstetrics & Gynecology Gynecology; Visit Provider Obstetrics & Gynecology
PROC: 10D00Z1 Extraction of Products of Conception, Low, Open Approach (ICD-10-PCS; CPT 59514; principal; 2020-08-04 09:00)
DX: O34.211 Maternal care for low transverse scar from previous cesarean delivery (principal); O98.32 Other infections with a predominantly sexual mode of transmission complicating childbirth; Z37.0 Single live birth; Z3A.39 39 weeks gestation of pregnancy; B00.9 Herpesviral infection, unspecified; O24.424 Gestational diabetes mellitus in childbirth, insulin controlled; L40.9 Psoriasis, unspecified; O99.72 Diseases of the skin and subcutaneous tissue complicating childbirth; O99.214 Obesity complicating childbirth; E66.01 Morbid (severe) obesity due to excess calories; O99.824 Streptococcus B carrier state complicating childbirth
CPT/HCPCS: 36415; 82948; 85025; 88307; A9270; J0131; J1885; J2370; J2590; J3480; J7120